=== PATIENT | female | born 1950 | race Caucasian/White ===

== ENCOUNTER 2017-01-18 11:54 | Day surgery (SDC) | payer OTHER ==
[~2017-01-18 11:54] MED LIST: LIDOCAINE HCL/EPINEPHRINE 30 ML VIAL IJ PRN; RINGERS SOLUTION,LACTATED 1,000 ML IV PRN
--- OUTSIDE RECORDS SUMMARY | 2017-01-18 11:57 | XMS REPORT | Continuity of Care Document ---
:1950 Author Organization [facility] ([facility]) Address [address] [place] [address] Phone [phone] Care Team Providers Name Role Phone Fatmata Lal Primary Care Provider [phone] Source Comments This disclosure is being made pursuant to the Care Everywhere program, applicable federal and state laws, and may not contain all informaitonavailable regarding this patient.[facility] ([facility]) Active Allergies and Adverse Reactions Allergen Noted Date Severity Reactions Comments Penicillins 08/23/2016 Rash Current Medications Prescription Sig. Disp. Refills Start Date End Date Status simvastatin PO Active Active Problems Problem Noted Date MELANI I (cervical intraepithelial neoplasia I) 08/23/2016 Immunizations Name Dates Previously Given Next Due Influenza, PF 07/28/2015 Social History Tobacco Use Types Packs/Day Years Used Date Former Smoker Last Filed Vital Signs Vital Sign Reading Time Taken Blood Pressure 144/74 08/23/2016 9:23 AM HANDLING TECH Pulse 67 08/23/2016 9:23 AM HANDLING TECH Temperature 35.3 C (95.5 F) 08/23/2016 9:23 AM HANDLING TECH Respiratory Rate - - Height 1.677 m (5' 6.02") 08/23/2016 9:23 AM HANDLING TECH Weight 59.9 kg (132 lb 0.9 oz) 08/23/2016 9:23 AM HANDLING TECH Body Mass Index 21.3 08/23/2016 9:23 AM HANDLING TECH Oxygen Saturation - - Plan of Care Health Maintenance Due Date Last Done Comments HCV Screening 1950 Hepatitis B Vaccine (1 of 3 - Primary Series) 1950 Tdap Vaccine 1959 Lipid Disorder Screening 1966 Td Vaccine 1966 Mammogram 1988 Colonoscopy 1998 Zoster Vaccine 2008 Osteoporosis Screening (DXA Bone Density) 2013 Pneumococcal Vaccine (1 of 2 - PCV13) 2013 Influenza Vaccine: Seasonal (#1) 05/15/2016 07/28/2015 Results from Last 3 Months Not on file
[2017-01-18 12:14] LABS: Hematocrit 42.9 % (37.0-47.0); Mean Cell Volume 87.4 fl (78-100); Mean Corpuscular Hemoglobin 28.5 pg (27-31); Mean Corpuscular Hgb Conc 32.6 g/dl (32-36); Mean Platelet Volume 9.5 fl (6.0-9.5); Neutrophil # 5.5 K/mm3 (1.3-6.0); Neutrophil % 65.5 % (42-75.0); Platelet Count 326 K/mm3 (150-450); Red Blood Count 4.91 M/mm3 (4.2-5.4); Red Cell Distribution Width 12.4 % (11.5-14.0); White Blood Count 8.4 K/mm3 (4.0-10.5)
[2017-01-18 12:26] LABS: Albumin * 3.9 gm/dl (3.4-5.0); Anion Gap 14.2 mmol/L (6.8-13.8); BUN/Creatinine Ratio 15.8 (9.0-21.6); Bilirubin, Total 0.4 mg/dL (0.0-1.1); Ca. Corrected For Albumin 8.8 mg/dL (8.4-10.2); Carbon Dioxide 26.8 mmol/L (24-32.6); Total Protein 7.4 gm/dL (6.2-8.2)
[2017-01-18] MEDS ORDERED: oxyCODONE HCL/ACETAMINOPHEN 1 TAB TABLET PO ONE (14:43)
[2017-01-18] MEDS ORDERED: IBUPROFEN 600 MG TABLET PO ONE (14:43)
[2017-01-18] MEDS ORDERED: RINGERS SOLUTION,LACTATED 1,000 ML IV PRN (14:43)
--- NOTE | 2017-01-18 16:00 | OR ---
Operative Report - Dictated Report Narrative: Date of Procedure: 01/18/2017 PROCEDURE: 1. Exam under anesthesia with endocervical curettage and endometrial biopsy 2. Diagnostic hysteroscopy with D&C. ANESTHESIA: General with IV sedation. PREOPERATIVE DIAGNOSIS: 1. Persistent endometrial polyp 2. Persistent MELANI I 3. Abnormal Pap with ASCUS and positive high risk HPV POSTOPERATIVE DIAGNOSES: 1. Persistent endometrial polyp 2. Persistent MELANI I 3. Abnormal Pap with ASCUS and positive high risk HPV SURGEON: Roxane Celeste MD PATIENT PLACEMENT COORDINATOR: Jl and student (Carole) FINDINGS: 1. Cervix: 1.5-2 cm in size with uneven fibrotic surface likely due to previous multiple cervical biopsies; cervix flush with vaginal wall, cervical os was extremely stenotic, and eccentric with close proximity to the posterior vaginal wall (cervical os was about 2 mm away from posterior vaginal wall, making LEEP or cone biopsy very dangerous and at high risk of injury). 2. Uterus: sounded to 5.5 cm; a small endometrial polyp about 1 cm was visualized within the endometrial cavity, unable to pass the scope fully into the uterine cavity to assess the rest of the cavity. SPECIMEN: 1. Endocervical curettings 2. Endometrial biopsy 3. Endometrial curettings DRAINS: None. URINE OUTPUT: voided before procedure BLOOD LOSS: negligible (1 ml) INTRAOPARATIVE IV FLUIDS: 600 ml Uterine Distending Solution: Normal saline, minimal deficit, not measured. COMPLICATIONS: None. DESCRIPTION OF PROCEDURE: The patient consented prior to the operation and taken to the operating room. She was placed on the operating table supine. SCDs were placed on her lower extremities. General anesthesia with IV sedation was initiated. She was then repositioned in the dorsal lithotomy position. Exam under anesthesia revealed a small uterus with findings noted above. The abdomen and vagina were prepped with Betadine. She was then draped in the usual sterile fashion. A time-out procedure was conducted to confirm the correct patient for the correct procedure. After time-out, a bivalve speculum was placed into the vagina. The cervix was visualized. The vagina and the cervix were prepped with Betadine one more time. The anterior cervix was grasped with a single-tooth tenaculum. Vicryl sutures were placed at 3 and 9 o'clock position of the cervix to help with traction. The cervix was so stenotic. Initially only a lacrimal duct dilator was able to pass the cervical os, then the cervix was gently dilated to allow a cervical curette to pass into it. A cervical curettage was first performed retrieving small amount of tissue with cervical mucus. Then a plastic endometrial biopsy pipette was inserted into the uterine cavity and the cavity was sampled with 3 passes by rotating the endometrial pipette retrieving small amount of tissue fluid. Next, the cervix was dilated further to allow a 5 mm hysteroscope to pass and the scope could only get up to the internal cervical os, but unable to get pass that point to reach the uterine cavity due to significant resistance. An endometrial polyp was visualized at that point, and pictures were taken and the hysteroscope was removed. A very small sharp curette (2-3 mm in width) was inserted into the uterine cavity. The cavity was scraped in all directions. Small amount of endometrial curettings were obtained. The sharp curette was removed. The hysteroscope was re-introduced into the uterus. The endometrial polyp appeared removed, again the scope was not able to get into the uterine cavity. The hysteroscope was removed. The single-tooth tenaculum was removed. The sutures were removed. The cervix was hemostastic. The speculum were removed. Patient tolerated the procedure well. All counts were correct. The patient was taken to the recovery room in stable condition. Roxane Celeste MD
[2017-01-18 16:18] VITALS: BP 133/69
== END 2017-01-18 11:55 | disposition home or self-care (01) ==
LOC: AMB 11:54
PROVIDERS: ATTEND Obstetrics & Gynecology
PROC: 0UDB7ZX Extraction of Endometrium, Via Natural or Artificial Opening, Diagnostic (ICD-10-PCS; 2017-01-18)
PROC: 0UBC7ZX Excision of Cervix, Via Natural or Artificial Opening, Diagnostic (ICD-10-PCS; 2017-01-18)
PROC: 0UDB8ZX Extraction of Endometrium, Via Natural or Artificial Opening Endoscopic, Diagnostic (ICD-10-PCS; principal; 2017-01-18 13:00)
DX: N87.0 Mild cervical dysplasia (principal); N84.0 Polyp of corpus uteri; N72 Inflammatory disease of cervix uteri; R87.810 Cervical high risk human papillomavirus (HPV) DNA test positive; E78.5 Hyperlipidemia, unspecified; Z87.891 Personal history of nicotine dependence; Z68.24 Body mass index [BMI] 24.0-24.9, adult

== ENCOUNTER 2017-08-27 10:40 | Day surgery (SDC) | payer OTHER ==
[~2017-08-27 10:40] MED LIST changes: +ACETAMINOPHEN 325 MG TABLET PO PRN; +ACETYLCHOLINE CHLORIDE 20 DROP KIT IO PRN; +BUPIVACAINE HCL/PF 30 ML VIAL IJ PRN; +CYCLOPENTOLATE HCL 20 DROP BTL RIGHTEYE PRN; +DEXTROSE 5%-0.5 NORMAL SALINE 1,000 ML IV PRN; +EPINEPHrine 1 MG/ML AMPUL IO PRN; +HYALURONATE SODIUM 0.4 ML DISP.SYRIN IO PRN; +HYALURONATE SODIUM 0.85 ML DISP.SYRIN IO PRN; -LIDOCAINE HCL/EPINEPHRINE 30 ML VIAL IJ PRN; +LIDOCAINE HCL/PF 200 MG/5 ML AMPUL TP PRN; +LIDOCAINE HCL/PF 5 ML VIAL IO PRN; +NORMAL SALINE 3 ML BOX IV PRN; -RINGERS SOLUTION,LACTATED 1,000 ML IV PRN; +TETRACAINE HCL 150 DROP BTL OP PRN
[2017-08-27] MEDS: TROPICAMIDE 150 DROP BTL RIGHTEYE PRN ×3 (11:20→11:41)
[2017-08-27] MEDS: PHENYLEPHRINE HCL 50 DROP BTL RIGHTEYE PRN ×3 (11:20→11:41)
[2017-08-27] MEDS ORDERED: DEXTROSE 5%-0.5 NORMAL SALINE 1,000 ML IV ONE (11:45)
[2017-08-27 13:41] VITALS: BP 140/70
== END 2017-08-27 10:41 | disposition home or self-care (01) ==
LOC: AMB 10:40
PROVIDERS: ATTEND Ophthalmology
PROC: 08RJ3JZ Replacement of Right Lens with Synthetic Substitute, Percutaneous Approach (ICD-10-PCS; principal; 2017-08-27 12:30)
DX: H26.8 Other specified cataract (principal); E78.5 Hyperlipidemia, unspecified; E55.9 Vitamin D deficiency, unspecified; M85.80 Other specified disorders of bone density and structure, unspecified site; Z87.891 Personal history of nicotine dependence; Z68.25 Body mass index [BMI] 25.0-25.9, adult

== ENCOUNTER 2017-09-10 14:02 | Day surgery (SDC) | payer OTHER ==
[~2017-09-10 14:02] MED LIST changes: +CYCLOPENTOLATE HCL 20 DROP BTL LEFTEYE PRN; -CYCLOPENTOLATE HCL 20 DROP BTL RIGHTEYE PRN
[2017-09-10] MEDS: PHENYLEPHRINE HCL 50 DROP BTL LEFTEYE PRN ×3 (14:28→15:09)
[2017-09-10] MEDS: TROPICAMIDE 150 DROP BTL LEFTEYE PRN ×3 (14:28→15:09)
[2017-09-10 17:04] VITALS: BP 144/64
== END 2017-09-10 14:03 | disposition home or self-care (01) ==
LOC: AMB 14:02
PROVIDERS: ATTEND Ophthalmology
PROC: 08RK3JZ Replacement of Left Lens with Synthetic Substitute, Percutaneous Approach (ICD-10-PCS; principal; 2017-09-10 13:20)
DX: H26.8 Other specified cataract (principal); E78.5 Hyperlipidemia, unspecified; E55.9 Vitamin D deficiency, unspecified; Z87.891 Personal history of nicotine dependence; Z68.25 Body mass index [BMI] 25.0-25.9, adult

== ENCOUNTER 2017-12-10 07:43 | Day surgery (SDC) | payer OTHER ==
[~2017-12-10 07:43] MED LIST changes: -ACETAMINOPHEN 325 MG TABLET PO PRN; -ACETYLCHOLINE CHLORIDE 20 DROP KIT IO PRN; -BUPIVACAINE HCL/PF 30 ML VIAL IJ PRN; -CYCLOPENTOLATE HCL 20 DROP BTL LEFTEYE PRN; -DEXTROSE 5%-0.5 NORMAL SALINE 1,000 ML IV PRN; -EPINEPHrine 1 MG/ML AMPUL IO PRN; -HYALURONATE SODIUM 0.4 ML DISP.SYRIN IO PRN; -HYALURONATE SODIUM 0.85 ML DISP.SYRIN IO PRN; -LIDOCAINE HCL/PF 200 MG/5 ML AMPUL TP PRN; -LIDOCAINE HCL/PF 5 ML VIAL IO PRN; -NORMAL SALINE 3 ML BOX IV PRN; +RINGER'S SOLUTION,LACTATED 1,000 ML IV PRN; -TETRACAINE HCL 150 DROP BTL OP PRN
[2017-12-10] MEDS ORDERED: RINGER'S SOLUTION,LACTATED 1,000 ML IV ONE (08:11)
[2017-12-10] MEDS ORDERED: RINGER'S SOLUTION,LACTATED 1,000 ML IV PRN (09:07)
[2017-12-10 09:51] VITALS: BP 105/51
--- NOTE | 2017-12-10 18:51 | OR ---
Operative Report - Dictated Report Narrative: OPERATIVE REPORT DATE OF OPERATION: 12/10/2017 PREOPERATIVE DIAGNOSIS: Family history of colon cancer POSTOPERATIVE DIAGNOSIS: Normal colonoscopy to the cecum OPERATION: Colonoscopy SURGEON: Alvarado Cates MD ANESTHESIA: GOMEZ Aguero CRNA INDICATIONS FOR PROCEDURE: The patient is a 67-year-old female referred by Sumaya VAZQUEZ. The patient's last colonoscopy was in 2012 and was normal. Her father had colon cancer at age 58. She is currently asymptomatic FINDINGS: Normal colonoscopy to the cecum NARRATIVE OF PROCEDURE: The patient was identified in the holding area, and prior to the administration of anesthetic, a multidisciplinary timeout was observed. With the patient in the left lateral position and after the administration of intravenous sedation, the perineum was inspected. There was no evidence of pilonidal disease or skin breakdown. The external appearance of the anus was normal. Sphincter tone was good. The flexible fiberoptic colonoscope was inserted into the rectum which was insufflated with air. The rectal mucosa and submucosal vascular pattern appeared normal, the prep was seen to be complete. The scope was advanced through the sigmoid colon, up the descending colon, and around the splenic flexure where the triangular haustral architecture of the transverse colon was seen. The scope was advanced across the transverse colon, around the hepatic flexure to the cecum, where the confluence of tenia and the ileocecal valve were identified. The mucosa at this level appeared normal. The scope was then slowly withdrawn in a circular fashion so that all aspects of colonic mucosa were inspected. The colon was normal in course and caliber. The haustral architecture appeared well preserved throughout with no evidence of external compression. The mucosa and submucosal vascular pattern appeared normal, specifically there was no gross evidence to suggest colitis or inflammatory bowel disease and no AV malformations were seen. No lul diverticulosis was demonstrated. No polyps were encountered. The scope was gradually withdrawn to the level of the rectum. As much insufflated air as possible was removed. The scope was withdrawn from the patient and the procedure terminated. The patient tolerated the anesthetic and procedure well without complication and was transferred back to the ambulatory surgery area awake and in stable condition. The patient remained stable throughout a period of postoperative observation. She denied abdominal discomfort, was able to tolerate by mouth intake, and was up without assistance. I shared the operative findings with the patient and she was given copies of the photographs which appear in the medical record. She was discharged home with instructions not to engage in hazardous activity today , but may resume normal activity tomorrow, and advance diet as tolerated. She is to continue those medications as listed in the history and physical exam. RECOMMENDATION: Colon surveillance in 5 years depending upon findings or symptoms Reviewed and electronically signed
== END 2017-12-10 07:44 | disposition home or self-care (01) ==
LOC: AMB 07:43
PROVIDERS: ATTEND Surgery
PROC: 0DJD8ZZ Inspection of Lower Intestinal Tract, Via Natural or Artificial Opening Endoscopic (ICD-10-PCS; principal; 2017-12-10)
DX: Z12.11 Encounter for screening for malignant neoplasm of colon (principal); E78.5 Hyperlipidemia, unspecified; E55.9 Vitamin D deficiency, unspecified; Z80.0 Family history of malignant neoplasm of digestive organs; Z87.891 Personal history of nicotine dependence; Z68.25 Body mass index [BMI] 25.0-25.9, adult